=== PATIENT | female | born 1955 | race Caucasian/White ===

== ENCOUNTER → 2017-10-24 | Outpatient (CLI) | payer OTHER ==
[~2017-10-24] MED LIST: BACT800T5 PO; CEPH500C3 PO; ECASA81 PO; HYDR25TA5 PO; LOVA20TA PO; MAXZ25 PO; MOBI7.5T PO; OMEP20TA39 PO; OMEP20TA93 PO; TRAM50TA PO; [UNRECOGNIZED DRUG - CODE] I-ARTICULR
[2017-10-24 08:52] LABS: AUTOMATED NEUTROPHIL # 4.4 TH/MM3 (1.8-7.7); BASOPHIL # 0.1 TH/MM3 (0-0.2); BASOPHIL % 0.8 % (0.0-2.0); EOSINOPHIL # 0.8 TH/MM3 (0-0.4); HEMATOCRIT 38.8 % (35.0-46.0); HEMOGLOBIN 12.7 GM/DL (11.6-15.3); LYMPH % 16.5 % (9.0-44.0); LYMPHOCYTE # 1.1 TH/MM3 (1.0-4.8); MEAN CELL VOLUME 91.2 FL (80.0-100.0); MEAN CORPUSCULAR HEMOGLOBIN 29.9 PG (27.0-34.0); MEAN CORPUSCULAR HGB CONC 32.8 % (32.0-36.0); MEAN PLATELET VOLUME 7.9 FL (7.0-11.0); MONO % 7.7 % (0.0-8.0); MONOCYTE # 0.5 TH/MM3 (0-0.9); PLATELET COUNT 291 TH/MM3 (150-450); RED BLOOD COUNT 4.25 MIL/MM3 (4.00-5.30); RED CELL DISTRIBUTION WIDTH 14.1 % (11.6-17.2); WHITE BLOOD COUNT 6.9 TH/MM3 (4.0-11.0)
[2017-10-24 09:02] LABS: BILIRUBIN, URINE NEG (NEG); BLOOD, URINE NEG (NEG); GLUCOSE,URINE NEG (NEG); KETONE, URINE NEG (NEG); MUCUS URINE FEW /lpf (OCC); NITRITE,URINE NEG (NEG); SQUAMOUS EPITHELIAL CELL URINE <1 /hpf (0-5); URINE COLOR YELLOW (YELLW/STRAW); URINE LEUKOCYTE ESTERASE NEG (NEG)
[2017-10-24 09:18] LABS: ALBUMIN 3.7 GM/DL (3.4-5.0); AST (GOT) 16 U/L (15-37); BICARBONATE 29.2 MEQ/L (21.0-32.0); BLOOD UREA NITROGEN 22 MG/DL (7-18); CHLORIDE 104 MEQ/L (98-107); CREATININE 0.95 MG/DL (0.50-1.00); GLOMERULAR FILTRATION RATE 59 ML/MIN (>89); GLUCOSE,FASTING 91 MG/DL (74-99); SODIUM (NA) 140 MEQ/L (136-145)
[2017-10-24 09:19] LABS: ALT (GPT) 25 U/L (10-53)
[2017-10-24 09:22] LABS: ALKALINE PHOSPHATASE 91 U/L (45-117); TOTAL BILIRUBIN ADULT 0.4 MG/DL (0.2-1.0); TOTAL PROTEIN 7.3 GM/DL (6.4-8.2)
--- NOTE | 2017-10-25 07:27 | EKG ---
Date Performed: 10/24/2017 Time Performed: 08:21:07 PTAGE: 61 years EKG: Sinus rhythm POSSIBLE LEFT VENTRICULAR HYPERTROPHY POSSIBLE ANTERIOR MYOCARDIAL INFARCTION, PROBABLY OLD ABNORMAL ECG NO PREVIOUS TRACING DOCTOR: Rajwinder Cordova Interpretating Date/Time 10/25/2017 07:22:08
== END ==
LOC: CPRE 08:00
PROVIDERS: ATTEND Surgery
DX: Z01.812 Encounter for preprocedural laboratory examination (principal); Z01.810 Encounter for preprocedural cardiovascular examination; M79.609 Pain in unspecified limb; R94.31 Abnormal electrocardiogram [ECG] [EKG]
CPT/HCPCS: 36415; 80053; 81001; 85025; 85610; 85730; 93005

== ENCOUNTER 2017-11-01 05:11 | Inpatient (IN) | payer OTHER ==
--- NOTE | 2017-10-25 11:34 | MH ---
cc: Shobha Cole MD DATE OF ADMISSION: 10/31/2017 DATE OF ADMISSION FOR SURGERY: 10/31/2017 ADMITTING DIAGNOSIS: Severe osteoarthritic degeneration, right knee. REASON FOR ADMISSION: Now being admitted for right total knee arthroplasty. HISTORY OF PRESENT ILLNESS: This pleasant 61-year-old female is being admitted today for a right total knee arthroplasty due to severe painful osteoarthritic degeneration, right knee. OTHER PAST HISTORY: The patient has a medical history of a hernia, low back pain and arthritis. CURRENT MEDICATIONS: Include: 1. Omeprazole. 2. Lovastatin. 3. 81 mg aspirin per day. PAST SURGICAL HISTORY: Include hysterectomy. REVIEW OF SYSTEMS: Noncontributory. FAMILY HISTORY: Noncontributory. SOCIAL HISTORY: She does not smoke. She drinks alcohol occasionally. 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 ALLERGIES: SHE HAS NO KNOWN ALLERGIES. PHYSICAL EXAMINATION: GENERAL: We find a 61-year-old female, well-developed, well-nourished, oriented x3, complaining of pain in right knee. VITAL SIGNS: Blood pressure 126/74, pulse 84 and regular, respirations 16, temperature 97.8, pulse oximetry 96% on room air. HEENT: PERRLA, EOMI. Ears, nose, and mouth clear. NECK: Supple. LUNGS: Clear. HEART: Regular rate. ABDOMEN: Soft, positive bowel sounds, nontender. EXTREMITIES: Reveal the right knee to be tender with crepitance throughout range of motion. She is neurovascularly intact to her toes. IMPRESSION AT THIS TIME: Severe painful osteoarthritic degeneration, right knee. PLAN: Admission for right total knee arthroplasty today. The patient was given a prescription for postoperative pain and anticoagulation control in the office, understands the use of the wipes preoperatively and plans on going home after surgical stay in the hospital. MD MAKSIM Ibrahim/SYDNEY , 11:14 AM , 11:33 AM
[~2017-11-01] VITALS: Ht 167.6 cm; Wt 113.6 kg
[~2017-11-01 05:11] MED LIST changes: -BACT800T5 PO; -CEPH500C3 PO; -MAXZ25 PO; -MOBI7.5T PO; -OMEP20TA39 PO; -TRAM50TA PO; -[UNRECOGNIZED DRUG - CODE] I-ARTICULR
[2017-11-01] MEDS ORDERED: ceFAZolin 2 GM PREMIX 50 ML IV SCH (05:45)
[2017-11-01] MEDS ORDERED: VANCOMYCIN 1 GM/200 ML PREMIX IV SCH (05:45)
[2017-11-01] MEDS ORDERED: CHLORHEXIDINE GLUCONATE 4% SOLN 120 ML BTL TOPICAL SCH (05:45)
[2017-11-01] MEDS ORDERED: DEXAMETHASONE SOD PHOS 20 MG/5 ML VIAL IV PUSH ONE (05:45)
[2017-11-01] MEDS ORDERED: DEXAMETHASONE SOD PHOS PF 10 MG/ML VIAL ONE (05:56)
[2017-11-01] MEDS ORDERED: SODIUM CHLORID 0.9% 500 ML IV PRN (06:00)
[2017-11-01] MEDS ORDERED: LACTATED RINGER'S 1000 ML IV PRN (06:00)
[2017-11-01] MEDS ORDERED: POVIDONE IODINE 5% (ANTISEPSIS KIT) 4 APPLICATIONS EACH NARE PRN (06:00)
[2017-11-01] MEDS ORDERED: METOPROLOL TARTRATE 25 MG TAB PO PRN (06:00)
[2017-11-01] MEDS ORDERED: CHLORHEXIDINE GLUCONATE 2 % 1 PACK (2 CLOTHS) TOPICAL PRN (06:00)
[2017-11-01] MEDS ORDERED: ceFAZolin INJ 1,000 MG VIAL ONE (06:16)
[2017-11-01 06:50] VITALS: PULSE 66
[2017-11-01] MEDS ORDERED: ACETAMINOPHEN 1000 MG/100 ML 100 ML IV ONE (06:50)
[2017-11-01] MEDS ORDERED: FAT EMULSION 20% INJ 0 ML ONE (06:55)
[2017-11-01] MEDS ORDERED: MIDAZOLAM HCL 2 MG/2 ML VIAL ONE ×2 (06:58→10:46)
[2017-11-01] MEDS ORDERED: BUPIVACAINE LIPOSOME PF 1.3% 20 ML VIAL ONE (06:59)
[2017-11-01] MEDS ORDERED: EPINEPHrine HCL PF/SF (1:1000) 1 MG/ML AMP I-OCULAR ONE (07:06)
[2017-11-01] MEDS ORDERED: BUPIVACAINE PF 0.75% DEX-WATER INJ 2 ML AMP ONE (07:07)
[2017-11-01] MEDS ORDERED: PROPOFOL 500 MG/50 ML INJ 100 ML ONE (07:08)
[2017-11-01] MEDS ORDERED: BUPIVACAINE LIPOSO PF 1.3% INJ 20 ML, BUPIVACAINE PF 0.25% INJ 20 ML in SODIUM CHLORIDE... P-ARTICULR SCH (07:15)
[2017-11-01] MEDS ORDERED: SODIUM CHLORIDE 0.9% IV SCH ×2 (07:30→10:30)
[2017-11-01] MEDS ORDERED: TRANEXAMIC ACID IV SCH ×2 (07:30→10:30)
[2017-11-01] MEDS ORDERED: diphenhydrAMINE HCL 50 MG/ML VIAL IV PUSH PRN (08:00)
[2017-11-01] MEDS ORDERED: CPMMACHINE (08:00)
[2017-11-01] MEDS ORDERED: NALOXONE HCL 0.4 MG/ML AMP IV PUSH PRN (08:00)
[2017-11-01] MEDS ORDERED: TRANEXAMIC ACID INJ 0 MG in SODIUM CHLORIDE 0.9% INJ 100 ML IV SCH (08:00)
[2017-11-01] MEDS ORDERED: MORPHINE SULFATE 4 MG/ML INJ IV PUSH PRN (08:00)
[2017-11-01] MEDS ORDERED: ADJUSTABLE COMM1 MIS (08:00)
[2017-11-01] MEDS ORDERED: TEMAZEPAM 15 MG CAP PO PRN (08:00)
[2017-11-01] MEDS ORDERED: ACETAMINOPHEN 325 MG TAB PO PRN (08:00)
[2017-11-01] MEDS ORDERED: WALKER WHEELS/F1 MIS (08:00)
[2017-11-01] MEDS ORDERED: ONDANSETRON ODT 4 MG TAB PO PRN (08:45)
[2017-11-01] MEDS: PANTOPRAZOLE SOD 20 MG DELAYED RELEASE TAB PO SCH (09:00)
[2017-11-01] MEDS: HYDROCHLOROTHIAZIDE 25 MG TAB PO SCH (09:00)
[2017-11-01] MEDS ORDERED: Post-op Orders (for Pharmacy) XX ONE (09:00)
[2017-11-01] MEDS: PRAVASTATIN SOD 20 MG TAB PO SCH (09:00)
--- NOTE | 2017-11-01 10:29 | MP ---
cc: Shobha Cole MD DATE OF OPERATION: 11/01/2017 PREOPERATIVE DIAGNOSIS: Osteoarthritic degeneration, right knee. POSTOPERATIVE DIAGNOSIS: Osteoarthritic degeneration, right knee. SURGERY PERFORMED: Right total knee arthroplasty using Consensus components size 3 femur, 3 tibia, 14 insert and size 2 patella with 2 batches of DePuy cement. SURGEON: Shobha Cole MD ANESTHESIA: Spinal. DIRECTOR [employer]: ADRIENNE Hawthorne PROCEDURE: After successful induction of anesthesia, the patient is placed on the operating room table in the supine position. The knee is prepped and draped in the usual manner. A tourniquet is inflated at the upper thigh and set to 300 mmHg pressure after exsanguination of the lower extremity. A longitudinal incision is made extending from 3 inches proximal to the superior pole of the patella, across the patella in longitudinal fashion, and down past the insertion of the tibial tubercle into the proximal tibia. The incision is carried down through subcutaneous tissue along the medial aspect of the patella and retinaculum, down through the capsule to expose the knee joint. The patella and patellar tendon are freed up enough to allow the patella to be inverted and retracted off the lateral side of the knee joint. The knee joint is left exposed. Small osteophytes are removed. All soft tissue is removed to allow proper position of the femoral and tibial cutting jig guide. The first femoral jig is then inserted along the distal end of the femur after first measuring to decide whether this is a small, medium, or large component. The notch is then drilled and the tibial cutting guide inserted into the femoral cutting guide, along with the ankle brace to allow for proper measurement of the tibial cutting surface that needed to be resected. Pins are inserted into the tibial cutting jig and femoral cutting jig to hold them in place. An oscillating saw is then used to resect the surface of the tibia. The surface of the tibia is then completely removed using sharp and blunt dissection. The anterior and posterior cuts of the femur are then made as well using an oscillating saw through the cutting guide. All guides are then removed and the varus/valgus angulation cutting guide applied to the femur for proper measurement of the proper amount of valgus. The anterior cutting guide for the femur is then inserted at the anterior femoral cuts made. Next, the first block trial is inserted into the femur to allow for proper condyle drill holes to be made which are then made followed by removal of the bone between the condyles using an oscillating saw as well as the bone removed at the most posterior surface of the condyle. After this, this guide is removed and the chamfer cuts made using the chamfer cutting guide from both anterior and posterior. Next, the femoral trial is then inserted, the tibial surface reflected anterior to expose the tibial surface and a tibial stem guide is inserted after first measuring for a standard, standard plus, large, or large plus surface to be used. After the stem is impacted the trial tibial surface is applied followed by the trial meniscal components. After full range of motion is found with the appropriate length meniscal components varying the patella is prepared by resecting the posterior aspect of the patella using an oscillating saw, inserting a trial. The trial is then removed and the cruciate cutting guide applied using the bur to cut the cruciate cuts. After cruciate cuts are made all trials are removed. The wound is irrigated copiously with antibiotic solution and Water Pik and the actual components inserted into place using the aforementioned components. After the cement has hardened and the components are found to have full range of motion with no instability, the tourniquet is deflated, total tourniquet time being 65 minutes at 300 mmHg pressure. 120 mL of Exparel used around the knee joint for extra pain control. Meticulous hemostasis achieved. Deep fascia approximated with a running #2 Quill. Subcutaneous tissue approximated using interrupted running 2-0 and 4-0 Monocryl suture and a Prineo dressing and knee immobilizer. No drain utilized. ESTIMATED BLOOD LOSS: 50 mL. Sponge and suture counts correct. The patient tolerated the procedure well and left the operating room in satisfactory condition. ADRIENNE Hawthorne was present during the entire procedure to include patient positioning and the procedure. The medical necessity of a nurse practitioner as a mortgage assistant was indicated in this case due to the surgical complexity of the case itself. During the surgical case, the neurosurgical nurse was working the back table while my certified surgical assistant, ADRIENNE, was directly assisting me. J. MD MAKSIM Camp/KB , 10:04 AM , 10:28 AM
[2017-11-01] MEDS ORDERED: DO NOT ADM ANY ANTICOAGULANT DRUGS PRN (10:41)
[2017-11-01] MEDS: LACTATED RINGER'S 1000 ML INJ 1,000 ML IV SCH ×2 (11:00→20:22)
--- NOTE | 2017-11-01 11:17 | RADRPT ---
EXAM DATE: 11/01/2017 11:11 AM EDT AGE/SEX: 62 years / Female INDICATIONS: Post op right knee surgery. CLINICAL DATA: This is the patient's initial encounter. Patient reports that signs and symptoms have been present for 1 day and indicates a pain score of 0/10. MEDICAL/SURGICAL HISTORY: None. None. COMPARISON: No prior [facility] exams available for comparison. FINDINGS: The patient is post right knee arthroplasty. The orthopedic hardware is in excellent position. The al ignment is anatomic. CONCLUSION: Uncomplicated right knee arthroplasty. Electronically signed by: Mckinley Polk MD 11/01/2017 11:15 AM EDT
[2017-11-01 12:00] VITALS: BP 106/64; PULSE 73; RESP 16; TEMP 97.6; O2SAT 96
[2017-11-01] MEDS ORDERED: LACTATED RINGER'S 1000 ML INJ 1,000 ML IV ONE (12:00)
[2017-11-01] MEDS ORDERED: PROPOFOL 200 MG/20 ML AMP IV ONE (12:00)
--- NOTE | 2017-11-01 12:16 | HHI.PR ---
Immediate Post Op Note Procedure Date: Nov 01, 2017 Pre Op Diagnosis: Osteoarthritic degeneration, right knee. Post Op Diagnosis: Osteoarthritic degeneration, right knee. Surgeon: Shobha Cole MD [employer] Chief(s): Alpa DELEON Procedure: Right Total Knee Arthroplasty Complications: none Specimen(s) removed: none Estimated blood loss: 50cc Anesthesia: General Drains: None IVF Urinary Output (mLs): 0 (no gil) Tourniquet time (min at mmHg) 65 mins at 300mmHg Patient to: PACU Patient Condition: Good Implant/Devices: SEE IMPLANT LOG (if applicable) Date/Time of Procedure: SEE SURGICAL CARE RECORD Alpa Villeda Nov 01, 2017 12:16
[2017-11-01] MEDS: ACETAMINOPHEN/HYDROcodone 325 MG/7.5 MG TAB PO PRN ×3 (12:24→20:52)
--- NOTE | 2017-11-01 14:43 | EKG ---
Date Performed: 11/01/2017 Time Performed: 06:48:05 PTAGE: 62 years EKG: Sinus rhythm POSSIBLE LEFT VENTRICULAR HYPERTROPHY ABNORMAL ECG Since the PREVIOUS TRACING , no significant change noted PREVIOUS TRACIN10/24/2017 08.21 DOCTOR: Luis Price Interpretating Date/Time 11/01/2017 14:41:41
[2017-11-01 16:00] VITALS: BP 128/68; PULSE 79; RESP 16; TEMP 97.2; O2SAT 98
[2017-11-01 20:30] VITALS: BP 108/68; PULSE 71; RESP 16; TEMP 97.8; O2SAT 97
[2017-11-02 00:45] VITALS: BP 110/62; PULSE 78; RESP 16; TEMP 97.7; O2SAT 96
[2017-11-02] MEDS: ACETAMINOPHEN/HYDROcodone 325 MG/7.5 MG TAB PO PRN ×6 (00:56→21:59)
[2017-11-02 04:55] VITALS: BP 115/59; PULSE 82; RESP 16; TEMP 97.1; O2SAT 98
[2017-11-02 06:52] LABS: HEMATOCRIT 32.5 % (35.0-46.0); HEMOGLOBIN 10.6 GM/DL (11.6-15.3)
[2017-11-02 08:00] VITALS: BP 114/57; PULSE 73; RESP 17; TEMP 97.2; O2SAT 95
[2017-11-02] MEDS: LACTATED RINGER'S 1000 ML INJ 1,000 ML IV SCH ×2 (08:52→21:22)
[2017-11-02] MEDS: HYDROCHLOROTHIAZIDE 25 MG TAB PO SCH (09:14)
[2017-11-02] MEDS: PRAVASTATIN SOD 20 MG TAB PO SCH (09:14)
[2017-11-02] MEDS: PANTOPRAZOLE SOD 20 MG DELAYED RELEASE TAB PO SCH (09:14)
--- NOTE | 2017-11-02 09:53 | PD.ORT.PN ---
Subjective Subjective Remarks Patient fairly comfortable today with minimal pain. Objective Vitals Vital Signs Date Time Temp Pulse Resp B/P (MAP) Pulse Ox O2 Delivery O2 Flow Rate FiO2 11/02/17 08:00 97.2 73 17 114/57 (76) 95 11/02/17 04:55 97.1 82 16 115/59 (77) 98 11/02/17 00:45 97.7 78 16 110/62 (78) 96 11/01/17 20:30 97.8 71 16 108/68 (81) 97 11/01/17 16:00 97.2 79 16 128/68 (88) 98 11/01/17 12:00 97.6 73 16 106/64 (78) 96 11/01/17 11:20 97.8 58 20 113/66 (82) 100 Nasal Cannula 2 11/01/17 11:15 58 20 113/66 (82) 100 Nasal Cannula 2 11/01/17 11:00 62 20 108/62 (77) 99 Nasal Cannula 2 11/01/17 10:45 66 20 95/52 (66) 99 Nasal Cannula 2 11/01/17 10:38 97.8 72 20 96/53 (67) 94 Nasal Cannula 2 I/O 11/01/17 11/01/17 11/01/17 11/02/17 11/02/17 11/02/17 07:00 15:00 23:00 07:00 15:00 23:00 Intake Total 2060 ml 200 ml 480 ml Output Total 50 ml Balance 2010 ml 200 ml 480 ml Intake Oral 360 ml 480 ml IV Total 1700 ml 200 ml Output Estimated Blood Loss 50 ml # Voids 2 2 # Bowel Movements 0 0 Result Diagram: 11/02/17 0553 Imaging Last 48 hours Impressions Knee X-Ray 11/01/17 0759 Signed Impressions: CONCLUSION: Uncomplicated right knee arthroplasty. Objective Remarks In bed at present time. NV intact to toes. Dressing dry and intact. no cafl tenderness. Assessment & Plan Ortho Post Op Day #: 1 Problem List: Assessment and Plan Home tomorrow with HHC and PT. Shobha Cole MD Nov 02, 2017 09:53
--- NOTE | 2017-11-02 09:55 | HHI.FF ---
Face to Face Verification Diagnosis: (1) Status post total right knee replacement using cement Physical Therapy Gait training Knee: Total knee, Protocol: Right, Gait training, Full weight bearing Canvas Knee Splint: When in bed & 2 pillows btw thighs Nursing RN: 3 days/week x 2 weeks Dressing Changes: Do not change dressing I have seen patient Kiki Holguin on 11/02/17. My clinical findings support the need for the requested home health care services because: Limited ability to care for self High risk of falls I certify that my clinical findings support that this patient is homebound because: Unsteady gait/balance Shobha Cole MD Nov 02, 2017 09:54
[2017-11-02] MEDS: APIXABAN 2.5 MG TABLET PO SCH ×2 (11:08→21:58)
[2017-11-02 12:00] VITALS: BP 120/75; PULSE 80; RESP 18; TEMP 97.4; O2SAT 95
[2017-11-02 16:00] VITALS: BP 120/56; PULSE 82; RESP 17; TEMP 97.9; O2SAT 96
[2017-11-02 19:50] VITALS: BP 106/55; PULSE 73; RESP 18; TEMP 97.6; O2SAT 97
[2017-11-02] MEDS: MULTIVITAMINS/MINERALS THERAPEUTIC TAB PO SCH (21:58)
[2017-11-02] MEDS: DOCUSATE SODIUM 100 MG CAP PO SCH (21:58)
[2017-11-03 00:20] VITALS: BP 115/54; PULSE 86; RESP 18; TEMP 97.8; O2SAT 95
[2017-11-03 04:18] VITALS: BP 115/58; PULSE 95; RESP 18; TEMP 98.2; O2SAT 94
[2017-11-03 04:32] LABS: HEMATOCRIT 30.9 % (35.0-46.0); HEMOGLOBIN 10.3 GM/DL (11.6-15.3)
[2017-11-03] MEDS: ACETAMINOPHEN/HYDROcodone 325 MG/7.5 MG TAB PO PRN ×2 (05:46→09:38)
[2017-11-03 08:00] VITALS: BP 128/78; PULSE 122; RESP 18; TEMP 98.8; O2SAT 91
[2017-11-03] MEDS: MULTIVITAMINS/MINERALS THERAPEUTIC TAB PO SCH (08:39)
[2017-11-03] MEDS: PRAVASTATIN SOD 20 MG TAB PO SCH (08:39)
[2017-11-03] MEDS: DOCUSATE SODIUM 100 MG CAP PO SCH (08:39)
[2017-11-03] MEDS: APIXABAN 2.5 MG TABLET PO SCH (08:39)
[2017-11-03] MEDS: HYDROCHLOROTHIAZIDE 25 MG TAB PO SCH (08:39)
[2017-11-03] MEDS: PANTOPRAZOLE SOD 20 MG DELAYED RELEASE TAB PO SCH (08:39)
--- NOTE | 2017-11-03 09:01 | PD.ORT.PN ---
Subjective Subjective Remarks Patient fairly comfortable today with minimal pain. She feels she is ready to go home today. Objective Vitals Vital Signs Date Time Temp Pulse Resp B/P (MAP) Pulse Ox O2 Delivery O2 Flow Rate FiO2 11/03/17 08:00 98.8 122 18 128/78 (95) 91 11/03/17 04:18 98.2 95 18 115/58 (77) 94 11/03/17 00:20 97.8 86 18 115/54 (74) 95 11/02/17 19:50 97.6 73 18 106/55 (72) 97 11/02/17 16:00 97.9 82 17 120/56 (77) 96 11/02/17 12:00 97.4 80 18 120/75 (90) 95 I/O 11/02/17 11/02/17 11/02/17 11/03/17 11/03/17 11/03/17 07:00 15:00 23:00 07:00 15:00 23:00 Intake Total 480 ml 880 ml 1200 ml Balance 480 ml 880 ml 1200 ml Intake Oral 480 ml 880 ml 1200 ml # Voids 2 3 2 # Bowel Movements 0 0 0 Result Diagram: 11/03/17 0417 Imaging Last 48 hours Impressions Knee X-Ray 11/01/17 2130 Signed Impressions: CONCLUSION: Uncomplicated right knee arthroplasty. Objective Remarks In bed at present time. NV intact to toes. Dressing dry and intact. no cafl tenderness. Assessment & Plan Ortho Post Op Day #: 2 Problem List: Assessment and Plan Home today with home health care and physical therapy. Appointment to see Dr. Cole in 10 days time for recheck. Shobha Cole MD Nov 03, 2017 09:01
--- NOTE | 2017-11-03 09:03 | HHI.DS ---
Discharge Summary Admission Date Nov 01, 2017 at 07:56 Discharge Date: Nov 03, 2017 Admitting Diagnosis Osteoarthritic degeneration right knee Diagnosis: (1) Status post total right knee replacement using cement ICD Codes: Z96.651 - Presence of right artificial knee joint Brief History This is a 62 year old female patient CBC/BMP: 11/03/17 0417 Significant Findings Laboratory Tests Test 11/02/17 05:53 11/03/17 04:17 Hemoglobin 10.6 GM/DL (11.6-15.3) 10.3 GM/DL (11.6-15.3) Hematocrit 32.5 % (35.0-46.0) 30.9 % (35.0-46.0) PE at Discharge In bed at present time. NV intact to toes. Dressing dry and intact. no cafl tenderness. Hospital Course Patient underwent a right total knee arthroplasty on day of admission. She received a course of prophylactic IV antibiotics and within 23 hours started on anticoagulation therapy. She continued to improve with physical therapy and p.o. pain meds. She remained afebrile with stable vital signs. She tolerated food and fluid well and was discharged on second postoperative day in good condition with instructions for home health care and physical therapy and appointment to the office in 10 days time for recheck. Pt Condition on Discharge: Good Discharge Disposition: Disch w/ Home Health Serv Discharge Instructions Diet Instructions: As Tolerated, No Restrictions Activities You Can Perform: Full Weight Bearing, Shower Only-No Bath Activities to Avoid: Bathing, Driving Shobha Cole MD Nov 03, 2017 09:03
[2017-11-03] MEDS: LACTATED RINGER'S 1000 ML INJ 1,000 ML IV SCH (09:52)
[2017-11-03] MEDS ORDERED: BACITRACIN OINT 0.9 GM PKT TOP PRN (10:15)
[2017-11-03] MEDS ORDERED: MAGNESIUM HYDROXIDE SUSP 30 ML CUP PO PRN (11:00)
[2017-11-03] MEDS ORDERED: BISACODYL 10 MG SUPP RECTAL PRN (11:00)
== END 2017-11-03 12:05 | disposition home health service (06) | DRG 470 ==
LOC: HSDC 05:11 → OBSVTOIN 07:56 → INTOOBSV 07:56 → HSDI 07:56 → N06B 11:39
PROVIDERS: ADMIT Surgery; ATTEND Surgery
PROC: 0SRC0J9 Replacement of Right Knee Joint with Synthetic Substitute, Cemented, Open Approach (ICD-10-PCS; principal; 2017-11-01 07:40)
DX: M17.11 Unilateral primary osteoarthritis, right knee (principal); Z79.82 Long term (current) use of aspirin; Z79.899 Other long term (current) drug therapy
CPT/HCPCS: 73560; 85014; 85018; 86850; 86900; 86901; 93005; 94150; C1776; C9290; J0131; J0171; J0690; J1100; J2250; J2270; J3370; J7120; L1830